=== PATIENT | male | born 1940 | race Caucasian/White ===

== ENCOUNTER 2023-05-27 05:44 | Outpatient (CLI) | payer MEDICARE, SELFPAY ==
[2023-05-02 14:06] VITALS: BMI 29.1
--- NOTE | 2023-05-02 14:15 | PC.NURSE ---
Pre Radiology instructions Report to the outpatient leticia rueda on date __05/13/23___ at time __0700 for procedure Time: _0900___ YOU MAY BE MONITORED AT HOSPITAL FOR UP TO 4 HOURS AFTER YOUR PROCEDURE. A visitor will be allowed to accompany the patient into the hospital. You and your visitor will be asked to self-screen and do not enter if you have any COVID symptoms. A mask is OPTIONAL within the hospital. Patients are to have no food or drink 6 hours prior to procedure time (0300 AM) Driving will be restricted after the procedure, you must have a person to drive you home. Labs will be drawn in preop area and once reviewed, you will be taken to radiology area for procedure. When the procedure is completed, you will be taken to outpatient where you will be monitored for several hours. You may have one visitor in this area. Other than holding anti-coagulants, patient may take other medication(s) as scheduled. Prior to your appointment date patients are instructed to hold anti-coagulants after discussing with ordering provider to stop. If unable to discontinue anti-coagulants please notify radiologist. ? No aspirin or warfarin (Coumadin) for 7 days prior to the procedure. ? No clopidogrel (Plavix), ticagrelor (Brilinta), prasugrel (Effient) or dabigatran (Pradaxa) for 5 days prior to the procedure. ? No rivaroxaban (Xarelto), apixaban (Eliquis), dipyridamole (Aggrenox or Persantine) or cilostazol (Pletal) for 2 days prior to the procedure. Medications to discontinue per physician: _COUMADIN, Date to take last dose: 05/06/23_ Please leave all valuables, including medications, at home the day of procedure. The hospital will not accept responsibility for valuables. Wear comfortable, loose fitting clothing.? Follow any additional instructions given to you from ordering provider. Telephone instructions given to ___PATIENT and asked if any additional questions and then verbalized understanding. Patient advised to call scheduling provider office or registration scheduling [phone] if any additional questions.
--- NOTE | 2023-05-13 11:25 | PC.NURSE ---
Pre Radiology instructions RESCHEDULED PER PATIENT Report to the outpatient [facility] on date _05/27/23____ at time __9:00AM for procedure Time: _11:00AM___ YOU MAY BE MONITORED AT HOSPITAL FOR UP TO 4 HOURS AFTER YOUR PROCEDURE. A visitor will be allowed to accompany the patient into the hospital. You and your visitor will be asked to self-screen and do not enter if you have any COVID symptoms. A mask is OPTIONAL within the hospital. Patients are to have no food or drink 6 hours prior to procedure time Driving will be restricted after the procedure, you must have a person to drive you home. Labs will be drawn in preop area and once reviewed, you will be taken to radiology area for procedure. When the procedure is completed, you will be taken to outpatient where you will be monitored for several hours. You may have one visitor in this area. Other than holding anti-coagulants, patient may take other medication(s) as scheduled. Prior to your appointment date patients are instructed to hold anti-coagulants after discussing with ordering provider to stop. If unable to discontinue anti-coagulants please notify radiologist. ? No aspirin or warfarin (Coumadin) for 7 days prior to the procedure. ? No clopidogrel (Plavix), ticagrelor (Brilinta), prasugrel (Effient) or dabigatran (Pradaxa) for 5 days prior to the procedure. ? No rivaroxaban (Xarelto), apixaban (Eliquis), dipyridamole (Aggrenox or Persantine) or cilostazol (Pletal) for 2 days prior to the procedure. Medications to discontinue per physician: __HOLD COUMADIN 7 DAYS [id number] DOSE 05/20/23 HOLD PLAVIX 5 DAYS [id number] DOSE 05/22/23__ Please leave all valuables, including medications, at home the day of procedure. The hospital will not accept responsibility for valuables. Wear comfortable, loose fitting clothing.? Follow any additional instructions given to you from ordering provider. Telephone instructions given to ___PATIENT & WIFE and asked if any additional questions and then verbalized understanding. Patient advised to call scheduling provider office or registration scheduling [phone] if any additional questions.
[2023-05-27] VITALS (8 sets, daily range): BP systolic 119–149; BP diastolic 70–91; PULSE 63–75; RESP 16–18; TEMP 36.2; O2SAT 95–98; BMI 29.4
--- NOTE | ~2023-05-27 | XR_ITS ---
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 Risks and benefits including bleeding, in fection and nerve root injury were discussed with the patient. The patient agreed to proceed. Time out procedure was performed. Allied Health Teacher radiograph was obtained. An entry site was chosen at the L4-L5 l evel. A right paracentral approach was used. Standard sterile prep was done with Betadine. Entry s ite was infiltrated with 3 cc 1% lidocaine. A 3.5 22G spinal needle was then inserted into the spin al canal with intrathecal position confirmed by spontaneous reflux of clear CSF fluid. 16 mL Omnipaq ue 180 were then injected into the thecal sac with intrathecal administration confirmed with fluorosc opy. A total of 14 fluoroscopic images and a lateral radiograph were obtained. Fluoroscopy exposure t wong was 0.6 minutes. Frontal, lateral and oblique fluoroscopic images were then acquired. The patient was then transferre d to CT scan for spiral CT of the lumbar spine was obtained initially in the supine and several repea mariia in the prone position due to suboptimal contrast opacification of the anterior thecal sac and the mid lumbar spine on the supine images. Following this patient was transferred to the recovery area for 2 hours of observation. There are no immediate complications. Coronal and sagittal reformatted images of the lumbar spine CT were also reviewed. The dose-length product was 2323.93 mGy-cm. COMPARISON: None FINDINGS: On the fluoroscopic images small disc bulges are seen throughout the lumbar spine. There is a signifi cantly larger filling defect centered at the left foraminal zone of L4-L5 corresponding to a synovial cyst which would be further detailed on the CT myelogram. 2 mm anterolisthesis L4 on L5 and 1-2 mm retrolisthesis T11 on T12, L1 on L2 and L2 on L3 of which is unchanged with prone imaging. Vertebral body heights are normal. Moderate disc height loss with brid ging anterior osteophytes at T10-T11. Mild disc height loss at L1-L2, L2-L3 and L4-L5. Small bone isl and at L3. There is a mobile nonloculated small right pleural effusion. Small calcified nodules in th e right lower lobe and spleen consistent with old granulomatous disease. 1.8 cm right renal cyst. The re is mild stranding of the mesenteric and retroperitoneal fat in the pelvis. There is fluid measurin g 2.0 x 2.0 cm in transaxial dimensions within the partially visualized right iliopsoas bursa. The fo llowing disc levels are specifically discussed: T10-T11: The disc does not extend beyond the endplate margin. Left foraminal endplate osteophyte valente ing from the inferior endplate of T10. There is mild bilateral facet osteoarthritis. There is mild ri ght and mild to moderate left neural foraminal stenosis. There is no central canal stenosis. T11-T12: The disc does not extend beyond the endplate margin. There is moderate bilateral facet joint osteoarthritis. There is mild bilateral neural foraminal stenosis. There is mild central canal steno sis. T12-L1: The disc does not extend beyond the endplate margin. There is moderate bilateral facet joint osteoarthritis. There is no neural foraminal stenosis. There is no central canal stenosis. L1-L2: Disc is mildly bulging. There is mild to moderate right and moderate left facet joint osteoart hritis. There is mild right and mild to moderate left neural foraminal stenosis. There is mild centra l canal stenosis. L2-L3: Disc is bulging. There is moderate bilateral facet joint osteoarthritis. There is moderate jb ateral neural foraminal stenosis. There is mild to moderate central canal stenosis. L3-L4: Disc is mildly bulging. There is moderate bilateral face
[2023-05-27 09:29] LABS: Mean Platelet Volume 11.2 fl (7.4-10.4); Platelet Count Result 175 k/mm3 (150-375)
[2023-05-27 09:38] LABS: INR 1.3; Prothrombin Time 16.8 Seconds (11.1-14.7)
--- NOTE | 2023-05-27 13:39 | SUR.PHASEII ---
Ok to resume Plavix and Warfarin 05/28/[address] Hobson.
== END 2023-05-27 13:40 | disposition home or self-care (01) ==
PROVIDERS: PCP Internal Medicine Infectious Disease; Referring Provider Neurological Surgery; Visit Provider Radiology Diagnostic Radiology
DX: Z01.818 Encounter for other preprocedural examination (principal); M71.38 Other bursal cyst, other site; M43.06 Spondylolysis, lumbar region; M43.04 Spondylolysis, thoracic region; J90 Pleural effusion, not elsewhere classified
CPT/HCPCS: 36415; 62304; 72131; 85049; 85610; Q9965

== ENCOUNTER 2024-01-20 02:04 | Day surgery (SDC) | payer MEDICARE, SELFPAY ==
--- NOTE | 2023-11-03 08:23 | PC.NURSE ---
Report to the Outpatient Waiting Room, entrance under the green pavilion located off [facility], at time __1030 on date __11/11/23 . Planned Procedure Time: __1230 . Time changes happen often and if your time is changed the preop area will call you the afternoon before. - You and your visitor will be asked to self-screen and do not enter if you have any COVID symptoms. - A mask is optional within the hospital at this time. Patients may have clear liquids (water, carbonated beverages, clear teas, apple juice) until 3 hours prior to surgery( 9:30AM) with a maximum of 20 ounces. - No food from midnight until time of surgery - Infants may have breast milk until 4 hours before surgery, formula 6 hours prior to surgery. - Children will be allowed to drink immediately following surgery. If applicable, please bring a bottle or sippy cup to assist with drinking. Juice, water, soda, and popsicles are readily available. For infants on formula, please bring formula the day of surgery. Pacifiers are allowed. Take the following medications with a SIP of water the morning of surgery: __CARVEDILOL DO NOT STOP ANY OF YOUR OTHER PRESCRIPTION MEDICATIONS PRIOR TO SURGERY ?EXCEPT THE FOLLOWING Medications to discontinue per physician _HOLD WARFARIN 5 DAYS PRE OP PER DR MAHARAJ_LAST DOSE 11/05/23.HOLD PLAVIX 7 DAYS PRE OP PER DR PORTER.LAST DOSE 11/03/23 HOLD ALL VITAMINS 3 DAY PRE OP LAST DOSE 11/07/23_ Please no make-up, nail persian, hairspray, perfume, deodorant, or body powder the day of surgery. No jewelry (including any body piercings) or valuables the day of surgery, leave them at home. Please take a shower or bath the night before, or the morning of, surgery with an antibacterial soap. Wear comfortable, loose fitting clothing. Children are encouraged to wear pajamas. - Jewelry must be removed prior to entering the operating room. Rings and piercings that are not removed may be cut off. - The hospital will not accept responsibility for valuables. - Please leave all valuables, including medications, at home the day of surgery. If you are going home after surgery, a licensed hazardous materials tanker driver must drive you home. - NO public transportation without another adult if you receive anesthesia. - We recommend that an adult stay with you for 24 hours following discharge. - We also recommend that you do not drive, make important decision, drink alcoholic beverages, or take any drugs that were not prescribed by your health care provider for at least 24 hours after your discharge ti Follow any additional instructions given to you from your surgeon. If you or anyone in your household have experienced Covid symptoms in the past week, please notify your surgeon or the nurse liaison at the phone number below for possible testing. Telephone instructions given to ___PATIENT and asked if any additional questions and then verbalized understanding. Patient advised to call surgeon office or pre surgery nurse liaison [phone] if any additional questions.
[2023-11-03 09:26] VITALS: BMI 29.5
--- NOTE | 2024-01-12 12:39 | PC.NURSE ---
Report to the Outpatient Waiting Room, entrance under the green pavilion located off [facility], at time _0600 on date __01/20/24 . Planned Procedure Time: __729 . Time changes happen often and if your time is changed the preop area will call you the afternoon before. - You and your visitor will be asked to self-screen and do not enter if you have any COVID symptoms. - A mask is optional within the hospital at this time. Patients may have clear liquids (water, carbonated beverages, clear teas, apple juice) until 3 hours prior to surgery(4:30 AM) with a maximum of 20 ounces. - No food from midnight until time of surgery - Infants may have breast milk until 4 hours before surgery, formula 6 hours prior to surgery. - Children will be allowed to drink immediately following surgery. If applicable, please bring a bottle or sippy cup to assist with drinking. Juice, water, soda, and popsicles are readily available. For infants on formula, please bring formula the day of surgery. Pacifiers are allowed. Take the following medications with a SIP of water the morning of surgery: __CARVEDILOL DO NOT STOP ANY OF YOUR OTHER PRESCRIPTION MEDICATIONS PRIOR TO SURGERY ?EXCEPT THE FOLLOWING Medications to discontinue per physician __HOLD WARFARIN 5 DAYS PRE OP PER DR MAHARAJ LAST DOSE 01/14/24. HOLD PLAVIX 7 DAYS PRE OP PER DR PORTER LAST DOSE 01/12/24. HOLD ALL VITAMINS 3 DAYS PRE OP .LAST DOSE 01/16/24 Please no make-up, nail bulgarian, hairspray, perfume, deodorant, or body powder the day of surgery. No jewelry (including any body piercings) or valuables the day of surgery, leave them at home. Please take a shower or bath the night before, or the morning of, surgery with an antibacterial soap. Wear comfortable, loose fitting clothing. Children are encouraged to wear pajamas. - Jewelry must be removed prior to entering the operating room. Rings and piercings that are not removed may be cut off. - The hospital will not accept responsibility for valuables. - Please leave all valuables, including medications, at home the day of surgery. If you are going home after surgery, a licensed ups driver must drive you home. - NO public transportation without another adult if you receive anesthesia. - We recommend that an adult stay with you for 24 hours following discharge. - We also recommend that you do not drive, make important decision, drink alcoholic beverages, or take any drugs that were not prescribed by your health care provider for at least 24 hours after your discharge time. For Pediatric surgeries, we recommend two adults accompany the child home. Follow any additional instructions given to you from your surgeon. If you or anyone in your household have experienced Covid symptoms in the past week, please notify your surgeon or the nurse liaison at the phone number below for possible testing. Telephone instructions given to __PATIENT and asked if any additional questions and then verbalized understanding. Patient advised to call surgeon office or pre surgery nurse liaison [phone] if any additional questions.
--- NOTE | 2024-01-12 13:06 | PC.NURSE ---
LAST INTERVIEW 11/03/23 ONLY CHANGE IN HEALTH HX NEW DEFIBRILLATOR/PACEMAKER INSERTED NOVEMBER [address] MAHARAJ
[2024-01-20] VITALS (8 sets, daily range): BP systolic 107–132; BP diastolic 64–83; PULSE 52–66; RESP 12–16; TEMP 36.1–36.5; O2SAT 96–100
--- NOTE | ~2024-01-20 | XR_ITS ---
XR fluoroscopy no charge Indication: Right L4-5 lateral foraminotomy TECHNIQUE: Fluoroscopy used during Right L4-5 lateral foraminotomy performed by [Gavino clemens MD] on 01/20/2024. 2 seconds of fluoroscopy with 2 fluoroscopic images captured. FINDINGS: Correlate with procedure note. IMPRESSION: Fluoroscopy used during Right L4-5 lateral foraminotomy. Reviewed, dictated and finalized at location B.
--- NOTE | 2024-01-20 06:57 | WPDANESEPPF ---
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 Patient Data Age: 83 Gender: M Height: 1.83 m Weight: 98.9 kg Allergies Allergy/AdvReac Type Severity Reaction Status Date / Time No Known Allergies Allergy Verified 01/12/24 12:31 Home Medications Medication Instructions Recorded Confirmed Type atorvastatin 80 mg tablet 80 mg PO HS 04/28/23 01/12/24 History carvedilol 25 mg tablet 25 mg PO Q12H 04/28/23 01/12/24 History clopidogrel 75 mg tablet 75 mg PO DAILY 04/28/23 01/12/24 History empagliflozin 10 mg tablet 10 mg PO DAILY TAKES FOR HEART 04/28/23 01/12/24 History (Jardiance) ezetimibe 10 mg tablet 10 mg PO QPM 04/28/23 01/12/24 History furosemide 20 mg tablet 80 mg PO QAM 04/28/23 01/12/24 History lisinopril 40 mg tablet 40 mg PO DAILY 04/28/23 01/12/24 History warfarin 5 mg tablet See Rx Instructions .Route .COMPLEX 04/28/23 01/12/24 History acetaminophen 325 mg capsule 1,000 mg PO Q6H PRN Pain 09/23/23 01/12/24 History (Tylenol) ondansetron 4 mg disintegrating 4 mg PO Q8H PRN Nausea 09/23/23 01/12/24 History tablet pantoprazole 20 mg tablet,delayed 20 mg PO HS 09/23/23 01/12/24 History release ascorbic acid (vitamin C) 1,000 mg 1 g PO DAILY 11/03/23 01/12/24 History capsule vericiguat 2.5 mg tablet 2.5 mg PO DAILY 11/03/23 01/12/24 History Laboratory Tests 01/20/24 06:39 PT Pending INR Pending APTT Pending Patient hx anesthesia problems: none Family hx anesthesia problems: none Results Review: All pre-operative results and documents have been reviewed as part of the pre-operative evaluation. [facility] Past Medical History Medical History Hx of blood clots Hyperlipidemia Hypertension Social History Social History Smoking packs per day: 1.5 Smoking cigarettes per day: 30.0 Years smoked: 5 Smoking pack-years: 7.50 Smoking status: Former smoker Tobacco type: cigarettes Smoking end date: 11/27/66 Alcohol intake: current Drinks per week: 1 Substance use: never Substance use type: does not use Do You Feel Safe in your Home?: Yes Lack of Transportation: No Lack of Food: Never True Current Housing: Decline to Answer Concerned About Future Housing: Decline to Answer Difficulty Paying Gas/Electric Bills: No Difficulty Paying for Meds: No Currently Unemployed: No Education: High School Diploma/GED Difficulty w/ Childcare or Family Care: No Living arrangements: with family Occupation/Education: retired Gender identity (if verbalized by the patient): Male Spiritual care concerns: No Anes - Eval Final PreProcedure Day of Procedure 01/20/24 06:57 Patient weight: overweight Heart: regular rate and rhythm Lungs: clear to auscultation Airway: Mallampati scale and special considerations (Teeth in poor condition, many missing and chipped, none loose. ) Neurological: alert and oriented Last oral intake: >/= 8 hours ASA classification: IV Emergent: no Anesthetic plan: proceed Anesthesia type and monitoring: general and standard monitoring Results Review: All pre-operative results and documents have been reviewed as part of the pre-operative evaluation. Pt w cardiology clearance noted on chart. Informed Consent: The patient's anesthetic plan and its attendant risks and benefits were discussed with the patient/family/POA. Questions were solicited and answers provided to the satisfaction of the patient/family/POA.
[2024-01-20 06:59] LABS: INR 1.6; Prothrombin Time 19.5 Seconds (11.1-14.7)
[2024-01-20 07:00] LABS: Partial Thromboplastin Time 35.5 Seconds (22.3-36.8)
--- NOTE | 2024-01-20 07:56 | PM.IMHP ---
H&P: HPI History of Present Illness Date/Time: 01/20/24 07:56 Chief Complaint: back and leg pain Narrative: Details: Philippe Rene is an 82-year-old gentleman who presents to the office today in follow-up of his right leg pain and bilateral leg heaviness. He has pain in his right hip that radiates down his right thigh that he states has been going on for a year or more. He initially went and saw his primary care doctor, Dr. Garcia, and then went and saw his orthopedist, Dr. Ramirez. He states that his orthopedist told him that one leg was shorter than the other and that he has arthritis in his right hip which is likely messing with the muscle in my leg (right thigh). He states that he was not told anything else by the orthopedist about his hip. He states that he has pain in his hip and thigh when he walks and feels like he has weights on both of his legs when he stands and walks. His states that she has noticed that he limps when he walks and the patient states that he sometimes has pain in his right hip when he bears weight on the leg. He notices generalized heaviness throughout both legs when he stands and walks but he does not notice any specific muscle group weakness in either lower extremity. He has numbness in his bilateral feet secondary to neuropathy but none otherwise. His walking is limited secondary to the heaviness in his legs. He states that he has to stop and take breaks when he is walking because his legs start feeling like lead. The heaviness in his legs improves after sitting for a few minutes but continues to return when he stands and walks.? He is not having any new bowel or bladder difficulty or other new constitutional problems at this time. since we last saw him a, Mr. Rene has undergone injections on the right at L4-5. These were transforaminal injections. The 1st was apparently a diagnostic injection which gave him great relief but for less than a day. The therapeutic injection did not give him relief for long. He is here to discuss potential surgical management of his problem. Review of Systems Review of Systems: Const All systems reviewed & are unremarkable except as noted in HPI and below Denies chills, Denies fever(s), Denies weight gain and Denies weight loss Eyes Denies change in vision and Denies diplopia ENT Denies neck pain and Denies disequilibrium Card Denies chest pain and Denies dyspnea Resp Denies cough and Denies dyspnea GI Denies abdominal pain, Denies change in bowel habits, Denies fecal incontinence and Denies vomiting Denies hematuria, Denies oliguria, Denies difficulty urinating, Denies dysuria, Denies urinary frequency, Denies urinary hesitancy, Denies urinary incontinence and Denies urinary urgency Musc Reports as per HPI, Reports abnormal gait, Reports muscle weakness, Denies neck pain, Reports numbness, Reports radiating pain into limb and Reports stiffness Skin/ Breast Reports system reviewed and no additional complaints, except as documented Neuro Reports as per HPI, Reports abnormal gait, Denies burning sensations, Denies focal weakness, Reports numbness and Denies disequilibrium Psych Reports no additional complaints, Denies depression and Denies hopelessness Endo Reports no additional complaints and Denies polyuria Pierce/ Lymph Reports no additional complaints Aller/ Immun Reports no additional complaints t the knees and ankles bilaterally. There is no ankle clonus. Gait: Gait, station, and transfers are independent and steady for short periods of time and over short distances. Psych Appearance: grossly normal Mental status: Yes mental status grossly normal Mood: congruent mood Affect: Yes normal affect Speech/Movement: Normal speech and movement present Attitude: Yes cooperative Thought Content: Normal thought content present [facility] Past Medical History Medical History Hx of blood clots
--- NOTE | 2024-01-20 07:58 | WPDHPUPDATE1 ---
History and Physical Update Update Date/Time: 01/20/24 07:58 History and Physical has been reviewed, including an updated exam of the patient. There are NO changes in the patient's condition. Risks, benefits, and alternatives have been discussed and questions answered. Patient agrees to proceed with procedure.
[2024-01-20] MEDS: ceFAZolin 2 GM/D5W 50 ML 2 GM/50 ML BAG IVPB (08:00)
[2024-01-20] MEDS: LIDO 1%/EPINEPHRINE 1:100,000 20 ML VIAL 30 ML INFILTRATE (08:45)
--- NOTE | 2024-01-20 09:22 | P.OP_ITS ---
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 She was then turned into the prone position on a Demetrius frame. The upper operation on his back was examined, marked for incision, prepped and draped in routine sterile fashion. Incision was marked over the L4-L5 spinous processes in the midline. This area was injected with 0.5% lidocaine with [id number] epinephrine. Intravenous antibiotics given prior to incision. Incision was made with a 10 blade scalpel down to the lumbodorsal fascia. A subperiosteal dissection of the muscle soft tissue within spinous process and lamina at L4-5 on the right was performed with a subperiosteal elevator and Bovie cautery. A verifying x-rays obtained to verify the level of operation. At the L4-5 level on the right a Midas Ton drill was used to perform a lateral resection of the pars and facet to the soft contents of the foramen were encountered. Under microscopy the yellow ligament was lifted removed piecemeal using Kerrison punches. This exposed the nerve root below. Curved curette and Kerrison punches were used to remove additional bone ligament in the foramen. A 4 [place] was used to push the nerve root superiorly. The ligament was entered using 11 blade scalpel. An Joan curette, curved curettes and Fox rongeur were used to push free and removed fragments of soft and hard disc herniation f rom beneath the nerve. These maneuvers were performed until a nerve hook could be placed proximally and distally to confirm lack of compression. The wound was then copiously irrigated with bacitracin irrigation all bleeding stopped with bipolar Bovie cautery and Gelfoam thrombin powder. The wound was then closed in layered fashion with 2-0 Vicryl interrupted sutures in the lumbodorsal fascia and Stephan's layer. 3-0 Vicryl buried interrupted sutures were placed in the dermis and skin was closed with a running 4-0 Monocryl subcuticular stitch and dressed with Dermabond. The patient was allowed wake up in the operating room and was taken to the recovery room in stable condition. There were no immediate complications of this operation. All counts were reported correct at the end the case. Blood loss was 150 cc. The patient was neurologically is baseline postoperatively. Estimated Blood Loss 150 IV Fluids 1,000 Complications None Condition Stable Disposition PACU [facility] Billing Surgery - Charge Forward: Surgery Billing
[2024-01-20] MEDS: LACTATED RINGERS 1,000 ML 30 ML IV CONT (09:31)
[2024-01-20] MEDS: oxyCODONE HCL (*CRX) 5 MG TAB IR PO (10:35)
== END 2024-01-20 11:40 | disposition home or self-care (01) ==
PROVIDERS: PCP Internal Medicine Infectious Disease; Visit Provider Neurological Surgery
PROC: (CPT 63005; principal; 2024-01-20 07:30)
DX: M48.061 Spinal stenosis, lumbar region without neurogenic claudication (principal); I10 Essential (primary) hypertension; E78.5 Hyperlipidemia, unspecified; Z86.718 Personal history of other venous thrombosis and embolism; Z87.891 Personal history of nicotine dependence; Z79.84 Long term (current) use of oral hypoglycemic drugs; Z79.02 Long term (current) use of antithrombotics/antiplatelets; Z79.01 Long term (current) use of anticoagulants
CPT/HCPCS: 63056; 36415; 85610; 85730; 99199; A9270; J0690; J1100; J2371; J2405; J2704; J3010; J7120

== ENCOUNTER 2024-03-09 13:15 | Outpatient (CLI) | payer MEDICARE, SELFPAY ==
--- NOTE | ~2024-03-09 | XR_ITS ---
XR hip RT min 2V Ordering provider: Gavino Leonard MD History: . M25.551 - Pain in right hip, NKI . Comparison: None. FINDINGS: BONES: No acute fracture or dislocation. HIP JOINT SPACES: Severe osteoarthritic changes of the right. Possibility of AVN. SACROILIAC JOINT SPACES/LUMBAR SPINE: The sacroiliac joint spaces shows a right sacroiliitis.. Mild d egenerative changes of the visualized lower lumbar spine. 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 SOFT TISSUES: Normal. IMPRESSION: No acute osseous abnormality pelvis and right hip. Severe right hip osteoarthritic changes. Reviewed, dictated and finalized at location A.
== END 2024-03-09 13:16 | disposition home or self-care (01) ==
PROVIDERS: PCP Internal Medicine Infectious Disease; Visit Provider Neurological Surgery
DX: M25.551 Pain in right hip (principal)
CPT/HCPCS: 73502